=== PATIENT | male | born 1975 | race Two or more races ===

== ENCOUNTER 2019-12-26 17:14 | Inpatient (IN) | payer OTHER ==
[~2019-12-26] VITALS: Ht 167.6 cm; Wt 82.8 kg
[2019-12-26] MEDS ORDERED: 0.9% SODIUM CHLORIDE 10 ML SYRINGE IVP PRN (17:45)
[2019-12-26] MEDS ORDERED: ACETAMINOPHEN 325 MG TABLET PO PRN (17:45)
[2019-12-26] MEDS ORDERED: ONDANSETRON HCL 4 MG/2 ML VIAL IVP PRN (17:45)
[2019-12-26] MEDS ORDERED: FentaNYL CITRATE-PF 100 MCG/2 ML VIAL IVP PRN (18:45)
[2019-12-26] MEDS ORDERED: HYDROmorphone 2 MG/ML SYRINGE IVP PRN (18:45)
[2019-12-26] MEDS ORDERED: MEPERIDINE-PF 25 MG/ML VIAL IVP PRN (18:45)
[2019-12-26] MEDS ORDERED: SODIUM CHLORIDE 0.9% 1,000 ML ONE (18:53)
[2019-12-26] MEDS: OXYGEN THERAPY IH SCH (20:00)
[2019-12-26 21:12] VITALS: BP 100/64
[2019-12-26] MEDS: PANTOPRAZOLE SODIUM 40 MG/VIAL IVP SCH (22:17)
[2019-12-27 00:56] VITALS: BP 117/78
[2019-12-27 04:30] VITALS: BP 105/68
[2019-12-27 08:00] VITALS: BP 121/77
[2019-12-27] MEDS: OXYGEN THERAPY IH SCH ×2 (08:00→20:00)
[2019-12-27] MEDS: PANTOPRAZOLE SODIUM 40 MG/VIAL IVP SCH ×2 (08:12→19:51)
[2019-12-27] MEDS: ACETAMINOPHEN 325 MG TABLET PO PRN ×2 (11:37→19:51)
[2019-12-27] MEDS: DEXTROSE 5%-0.45% SODIUM CHL 1,000 ML IV SCH (11:37)
[2019-12-27 16:13] VITALS: BP 138/81
[2019-12-27 19:29] VITALS: BP 119/68
[2019-12-27] MEDS: SERTRALINE HCL 50 MG TABLET PO SCH (19:51)
[2019-12-27] MEDS: OLANZapine 10 MG TABLET PO SCH (19:51)
[2019-12-28] MEDS: DEXTROSE 5%-0.45% SODIUM CHL 1,000 ML IV SCH ×2 (04:18→14:23)
[2019-12-28] MEDS ORDERED: ONDANSETRON HCL 4 MG/2 ML VIAL IVP ONE (05:38)
[2019-12-28] MEDS ORDERED: LIDOCAINE/PF 2% 5 ML SYRINGE IVP ONE (05:38)
[2019-12-28] MEDS ORDERED: FentaNYL CITRATE-PF 100 MCG/2 ML VIAL IVP ONE (05:38)
[2019-12-28] MEDS ORDERED: NEOSTIGMINE METHYLSULFATE 1 MG/ML 10 ML VIAL IVP ONE (05:38)
[2019-12-28] MEDS ORDERED: GLYCOPYRROLATE 0.2 MG/ML VIAL IM ONE (05:38)
[2019-12-28] MEDS ORDERED: SUCCINYLCHOLINE CHLORIDE 20 MG/ML 10 ML VIAL IVP ONE (05:38)
[2019-12-28] MEDS ORDERED: DEXAMETHASONE SOD PHOS 4 MG/ML VIAL IVP ONE (05:38)
[2019-12-28] MEDS ORDERED: ROCURONIUM BROMIDE 10 MG/ML 5 ML VIAL IVP ONE (05:38)
[2019-12-28] MEDS ORDERED: PROPOFOL 1% 20 ML VIAL IVP ONE (05:38)
[2019-12-28] MEDS ORDERED: MIDAZOLAM HCL 2 MG/2 ML VIAL IVP ONE (05:38)
[2019-12-28] MEDS ORDERED: METOCLOPRAMIDE HCL 5 MG/ML 2 ML VIAL IVP ONE (05:38)
[2019-12-28] MEDS: OXYGEN THERAPY IH SCH ×2 (08:00→19:43)
[2019-12-28 08:26] LABS: ANION GAP 10 mmol/L (8-16); CALCIUM, TOTAL 8.5 mg/dL (8.8-10.5); CARBON DIOXIDE 20 mmol/L (22-29); CHLORIDE 102 mmol/L (98-107); CREATININE 0.87 mg/dL (0.60-1.30); GLOMERULAR FILTR. RATE CALC > 60 mL/min (>60); GLUCOSE,RANDOM 383 mg/dL (70-110); POTASSIUM 3.4 mmol/L (3.5-5.1); SODIUM SERUM 132 mmol/L (136-145); UREA NITROGEN, BLOOD 10 mg/dL (7-18)
[2019-12-28 08:28] LABS: BASOPHILS % (AUTO) 0.4 % (0.0-2.0); EOSINOPHILS % (AUTO) 0.1 % (1.0-6.0); HEMATOCRIT 43.2 % (41-53); HEMOGLOBIN 14.9 g/dL (13.5-17.5); LYMPHOCYTES # (AUTO) 1.4 K/uL (1.0-4.8); LYMPHOCYTES % (AUTO) 21.1 % (22.0-44.0); MEAN CORPUSCULAR HEMOGLOBIN 31.9 pg (26.0-34.0); MEAN CORPUSCULAR HGB CONC 34.5 G/dL (31.0-37.0); MEAN CORPUSCULAR VOLUME 93 fL (80-100); MONOCYTES # (AUTO) 0.7 K/uL (0.1-1.0); MONOCYTES % (AUTO) 10.4 % (2.0-9.0); NEUTROPHILS # (AUTO) 4.4 K/uL (1.8-7.7); PLATELET COUNT (AUTO) 206 K/uL (150-450); RED BLOOD CELL COUNT(AUTO) 4.67 MIL/uL (4.50-5.90); RED CELL DISTRIBUTION WIDTH 13.7 % (11.5-14.5)
[2019-12-28 08:32] LABS: ALANINE AMINOTRANSFERASE 25 U/L (12-78); ALBUMIN 3.6 g/dL (3.4-5.0); ALKALINE PHOSPHATASE 65 U/L (46-116); ASPARTATE AMINOTRANSFERASE 16 U/L (15-37); BILIRUBIN,TOTAL 0.9 mg/dL (0.1-1.0); TOTAL PROTEIN, SERUM 7.1 g/dL (6.4-8.2)
[2019-12-28 09:00] LABS: PROTHROMBIN TIME 10.7 SEC (9.4-11.6)
[2019-12-28] MEDS ORDERED: POTASSIUM CHLORIDE 20 MEQ ER TABLET PO PRN (10:00)
[2019-12-28] MEDS ORDERED: INSULIN LISPRO 100 UNITS/ML SQ PRN (10:00)
[2019-12-28] MEDS ORDERED: DEXTROSE 50%-WATER 25 GM/50 ML SYRINGE IVP PRN (10:00)
[2019-12-28] MEDS ORDERED: POTASSIUM CHL 10 MEQ/WATER 50 ML IV PRN (10:00)
[2019-12-28 10:12] VITALS: BP 125/84
[2019-12-28] MEDS: PANTOPRAZOLE SODIUM 40 MG/VIAL IVP SCH ×2 (10:36→21:07)
[2019-12-28 12:30] LABS: GLUCOMETER DEV NAME(LOC) 4E.2; GLUCOSE,POINT OF CARE 138 MG/DL (70-110)
[2019-12-28 12:30] LABS: GLUCOMETER DEV NAME(LOC) 4E.2; GLUCOSE,POINT OF CARE 137 MG/DL (70-110)
[2019-12-28 19:32] VITALS: BP 120/82
[2019-12-28] MEDS: OLANZapine 10 MG TABLET PO SCH (21:07)
[2019-12-28] MEDS: SERTRALINE HCL 50 MG TABLET PO SCH (21:07)
[2019-12-29] MEDS: DEXTROSE 5%-0.45% SODIUM CHL 1,000 ML IV SCH ×2 (02:08→18:01)
[2019-12-29 03:16] VITALS: BP 124/76
[2019-12-29 05:33] LABS: GLUCOMETER DEV NAME(LOC) 6S.1; GLUCOSE,POINT OF CARE 122 MG/DL (70-110)
[2019-12-29 06:42] LABS: GLUCOMETER DEV NAME(LOC) 4E.2; GLUCOSE,POINT OF CARE 131 MG/DL (70-110)
[2019-12-29 06:42] LABS: GLUCOMETER DEV NAME(LOC) 4E.2; GLUCOSE,POINT OF CARE 112 MG/DL (70-110)
[2019-12-29 07:45] VITALS: BP 124/82
[2019-12-29] MEDS: OXYGEN THERAPY IH SCH ×2 (08:00→20:00)
[2019-12-29 08:18] LABS: BASOPHILS % (AUTO) 0.6 % (0.0-2.0); EOSINOPHILS % (AUTO) 0.6 % (1.0-6.0); HEMATOCRIT 45.7 % (41-53); HEMOGLOBIN 15.8 g/dL (13.5-17.5); LYMPHOCYTES # (AUTO) 2.7 K/uL (1.0-4.8); LYMPHOCYTES % (AUTO) 55.8 % (22.0-44.0); MEAN CORPUSCULAR HEMOGLOBIN 31.8 pg (26.0-34.0); MEAN CORPUSCULAR HGB CONC 34.6 G/dL (31.0-37.0); MEAN CORPUSCULAR VOLUME 92 fL (80-100); MONOCYTES # (AUTO) 0.5 K/uL (0.1-1.0); MONOCYTES % (AUTO) 9.5 % (2.0-9.0); NEUTROPHILS # (AUTO) 1.6 K/uL (1.8-7.7); NEUTROPHILS % (AUTO) 33.5 % (40.0-70.0); PLATELET COUNT (AUTO) 202 K/uL (150-450); RED BLOOD CELL COUNT(AUTO) 4.96 MIL/uL (4.50-5.90); RED CELL DISTRIBUTION WIDTH 13.5 % (11.5-14.5)
[2019-12-29 08:27] LABS: ANION GAP 7 mmol/L (8-16); CALCIUM, TOTAL 8.8 mg/dL (8.8-10.5); CARBON DIOXIDE 27 mmol/L (22-29); CHLORIDE 105 mmol/L (98-107); CREATININE 0.86 mg/dL (0.60-1.30); GLOMERULAR FILTR. RATE CALC > 60 mL/min (>60); GLUCOSE,RANDOM 100 mg/dL (70-110); POTASSIUM 3.2 mmol/L (3.5-5.1); SODIUM SERUM 139 mmol/L (136-145); UREA NITROGEN, BLOOD 7 mg/dL (7-18)
[2019-12-29 08:33] LABS: ALANINE AMINOTRANSFERASE 24 U/L (12-78); ALBUMIN 3.6 g/dL (3.4-5.0); ALKALINE PHOSPHATASE 68 U/L (46-116); ASPARTATE AMINOTRANSFERASE 12 U/L (15-37); BILIRUBIN,TOTAL 0.8 mg/dL (0.1-1.0); TOTAL PROTEIN, SERUM 7.1 g/dL (6.4-8.2)
[2019-12-29] MEDS: PANTOPRAZOLE SODIUM 40 MG/VIAL IVP SCH ×3 (08:41→20:00)
[2019-12-29 12:50] LABS: GLUCOMETER DEV NAME(LOC) 4E.2; GLUCOSE,POINT OF CARE 105 MG/DL (70-110)
[2019-12-29 15:22] VITALS: BP 111/72
[2019-12-29 19:00] VITALS: BP 122/74
[2019-12-29] MEDS: OLANZapine 10 MG TABLET PO SCH (19:59)
[2019-12-29] MEDS: SERTRALINE HCL 50 MG TABLET PO SCH (19:59)
[2019-12-29] MEDS: ACETAMINOPHEN 325 MG TABLET PO PRN (20:32)
[2019-12-30 01:57] LABS: GLUCOMETER DEV NAME(LOC) 6S.1; GLUCOSE,POINT OF CARE 147 MG/DL (70-110)
[2019-12-30 01:57] LABS: GLUCOMETER DEV NAME(LOC) 6S.1; GLUCOSE,POINT OF CARE 125 MG/DL (70-110)
[2019-12-30] MEDS: DEXTROSE 5%-0.45% SODIUM CHL 1,000 ML IV SCH (02:16)
[2019-12-30 07:23] LABS: GLUCOMETER DEV NAME(LOC) 4E.2; GLUCOSE,POINT OF CARE 117 MG/DL (70-110)
[2019-12-30] MEDS: OXYGEN THERAPY IH SCH ×2 (08:00→21:19)
[2019-12-30 08:31] VITALS: BP 125/76
[2019-12-30] MEDS: PANTOPRAZOLE SODIUM 40 MG/VIAL IVP SCH ×2 (12:08→21:12)
[2019-12-30] MEDS: POLYETHYLENE GLYCOL 3350 17 GM PACKET PO SCH ×2 (12:09→21:12)
[2019-12-30 15:18] VITALS: BP 130/62
[2019-12-30 20:13] LABS: GLUCOMETER DEV NAME(LOC) 4E.2; GLUCOSE,POINT OF CARE 96 MG/DL (70-110)
[2019-12-30 20:13] LABS: GLUCOMETER DEV NAME(LOC) 4E.2; GLUCOSE,POINT OF CARE 106 MG/DL (70-110)
[2019-12-30 20:43] VITALS: BP 114/70
[2019-12-30] MEDS: SERTRALINE HCL 50 MG TABLET PO SCH (21:11)
[2019-12-30] MEDS: OLANZapine 10 MG TABLET PO SCH (21:11)
[2019-12-30] MEDS: ACETAMINOPHEN 325 MG TABLET PO PRN (21:11)
[2019-12-31 07:43] LABS: GLUCOMETER DEV NAME(LOC) 4E.2; GLUCOSE,POINT OF CARE 100 MG/DL (70-110)
[2019-12-31 07:43] LABS: GLUCOMETER DEV NAME(LOC) 4E.2; GLUCOSE,POINT OF CARE 113 MG/DL (70-110)
[2019-12-31] MEDS: OXYGEN THERAPY IH SCH ×2 (08:00→20:11)
[2019-12-31 08:28] VITALS: BP 114/77
[2019-12-31] MEDS: PANTOPRAZOLE SODIUM 40 MG/VIAL IVP SCH ×2 (08:33→20:10)
[2019-12-31] MEDS: POLYETHYLENE GLYCOL 3350 17 GM PACKET PO SCH ×2 (08:33→20:10)
[2019-12-31] MEDS: ACETAMINOPHEN 325 MG TABLET PO PRN (14:39)
[2019-12-31 16:30] VITALS: BP 132/89
[2019-12-31 18:50] LABS: GLUCOMETER DEV NAME(LOC) 4E.2; GLUCOSE,POINT OF CARE 108 MG/DL (70-110)
[2019-12-31 19:15] LABS: GLUCOMETER DEV NAME(LOC) 6S.1; GLUCOSE,POINT OF CARE 96 MG/DL (70-110)
[2019-12-31 20:00] VITALS: BP 130/85
[2019-12-31] MEDS: OLANZapine 10 MG TABLET PO SCH (20:10)
[2019-12-31] MEDS: SERTRALINE HCL 50 MG TABLET PO SCH (20:10)
[2019-12-31 23:29] LABS: GLUCOMETER DEV NAME(LOC) 6S.1; GLUCOSE,POINT OF CARE 116 MG/DL (70-110)
[2020-01-01 06:10] LABS: GLUCOMETER DEV NAME(LOC) 4E.2; GLUCOSE,POINT OF CARE 102 MG/DL (70-110)
[2020-01-01 08:10] VITALS: BP 114/81
[2020-01-01] MEDS: POLYETHYLENE GLYCOL 3350 17 GM PACKET PO SCH (09:00)
[2020-01-01] MEDS: PANTOPRAZOLE SODIUM 40 MG/VIAL IVP SCH (09:22)
[2020-01-01] MEDS ORDERED: SERT50TA12 PO (10:54)
[2020-01-01] MEDS ORDERED: ACET-2865 PO (10:54)
[2020-01-01] MEDS ORDERED: OLAN10TA3 PO (10:54)
[2020-01-01] MEDS ORDERED: INSU100V SQ (10:55)
[2020-01-01 12:21] LABS: GLUCOMETER DEV NAME(LOC) 4E.2; GLUCOSE,POINT OF CARE 106 MG/DL (70-110)
[2020-01-01] MEDS: ACETAMINOPHEN 325 MG TABLET PO PRN (14:03)
== END 2020-01-01 17:15 | DRG 394 ==
LOC: EMS 17:16 → 6S 17:43
PROVIDERS: ADMIT Hospitalist; ATTEND Hospitalist
PROC: 0DC68ZZ Extirpation of Matter from Stomach, Via Natural or Artificial Opening Endoscopic (ICD-10-PCS; principal; 2019-12-26 18:50)
DX: T18.2XXA Foreign body in stomach, initial encounter (principal); K22.10 Ulcer of esophagus without bleeding; R45.851 Suicidal ideations; K25.9 Gastric ulcer, unspecified as acute or chronic, without hemorrhage or perforation; K26.9 Duodenal ulcer, unspecified as acute or chronic, without hemorrhage or perforation; F25.1 Schizoaffective disorder, depressive type; M25.521 Pain in right elbow; E11.9 Type 2 diabetes mellitus without complications; I10 Essential (primary) hypertension; F17.210 Nicotine dependence, cigarettes, uncomplicated; G89.29 Other chronic pain; X58.XXXA Exposure to other specified factors, initial encounter; Y93.89 Activity, other specified; Y92.89 Other specified places as the place of occurrence of the external cause; Y99.8 Other external cause status; Z88.0 Allergy status to penicillin
CPT/HCPCS: 74018; 74019; 74022; 84132; 88300; 93005; 97161; 97530; C9113; J0330; J1100; J2250; J2405; J2704; J2765; J3010; J3490; J7030; 36415-L1; 36415-TC